=== PATIENT | female | born 1985 | race Caucasian/White ===

== ENCOUNTER 2021-07-20 09:00 | Outpatient (RCR) | payer BC, SELFPAY | END 2021-10-19 14:12 | disposition home or self-care (01) | LOC: HO.PT 09:00 | PROVIDERS: Visit Provider Student in an Organized Health Care Education/Training Program | DX: M62.9 Disorder of muscle, unspecified (principal) | CPT/HCPCS: 97110; 97112; 97162; 97530 ==